=== PATIENT | female | born 2005 | race Caucasian/White ===

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

== ENCOUNTER 2023-10-01 03:17 | Emergency (ER) | payer OTHER, SELFPAY ==
[2023-10-01 03:19] VITALS: BP 160/101; PULSE 97; RESP 18; TEMP 36.8; O2SAT 100; BMI 38.2
[2023-10-01 03:53] LABS: Add Urine Microscopic? YES; Bilirubin Urine Neg (Negative); Blood Urine 2+ (Negative); Glucose Urine UA Norm (Normal); HCG Qualitative Urine. Negative (Negative); Ketones Urine Negative (Negative); Leukocyte Esterase Urine 2+ (Negative); Nitrate Urine Negative (Negative); Protein Urine Neg (Negative); Sulfosalicylic Acid Urine Negative (Negative); Urine Appearance Cloudy (CLEAR); Urine Color Yellow (Yellow); Urobilinogen Urine Neg (Negative); pH Urine 8 (5-7)
[2023-10-01 03:54] LABS: WBC Urine 15-25 /hpf (0-5)
[2023-10-01 03:55] LABS: Add Urine Culture? No; Amorphous Sediment Urine 1+ /hpf; Bacteria Urine 2+ /hpf; Mucus Urine 2+ /hpf; Squamous Epithelial Cell Urine 25-40 /hpf (0-5)
[2023-10-01 04:02] LABS: Basophils # 0.1 10^3/uL (0.0-0.1); Basophils % 0.4 %; Hematocrit 39.6 % (36-47); Lymphocytes # 2.1 10^3/uL (1.5-6.5); Lymphocytes % 11.5 %; Mean Corpuscular HGB Conc 32.3 g/dL (30-55); Mean Corpuscular Hemoglobin 28.6 pg (27-33); Mean Corpuscular Volume 88.6 fl (85-98); Mean Platelet Volume 8.5 fL (7.4-10.4); Monocytes # 0.6 10^3/uL (0.2-0.9); Neutrophils # 15.81 10^3/uL (1.8-8.0); Neutrophils % 84.9 %; Nucleated Red Blood Cells % 0 %; Platelet Count 445 10^3/cmm (157-399); Red Blood Count 4.47 10^6/uL (3.85-5.65); Red Cell Distribution Width 12.3 % (12.1-15.1); White Blood Count 18.59 10^3/uL (4.5-13.0)
--- NOTE | 2023-10-01 04:10 | CTR_ITS ---
PROCEDURE INFORMATION: Exam: CT Abdomen And Pelvis With Contrast Exam date and time: 10/01/2023 4:29 AM Age: 18 years old Clinical indication: Abdominal pain; Flank; Left; Additional info: Llq abd pain TECHNIQUE: Imaging protocol: Computed tomography of the abdomen and pelvis with contrast. Radiation optimization: All CT scans at this facility use at least one of these dose optimization techniques: automated exposure control; mA and/or kV adjustment per patient size (includes targeted exams where dose is matched to clinical indication); or iterative reconstruction. Contrast material: OMNI 350; Contrast volume: 100 ml; Contrast route: INTRAVENOUS (IV); COMPARISON: No relevant prior studies available. RADIATION DOSE METRICS: Total DLP (mGy-cm): 1131 FINDINGS: Lungs: Lung bases are clear as visualized. Heart: Base of heart is unremarkable as visualized. Liver: Normal. No mass. Gallbladder and bile ducts: Normal. No calcified stones. No ductal dilation. Pancreas: Normal. No ductal dilation. Spleen: Normal. No splenomegaly. Adrenal glands: Normal. No mass. Kidneys and ureters: Delayed left nephrogram. Just beyond the left ureteropelvic junction there are 2 calcified renal stones each measuring about 6 mm in greatest cross-sectional dimension. There is left xpea-cx-tqbfhwas hydronephrosis and left renal pelvic dilation. Remainder of the left ureter is unremarkable. Stomach and bowel: Moderate colonic stool burden. Appendix: No evidence of appendicitis. Intraperitoneal space: Unremarkable. No free air. No significant fluid collection. Vasculature: Unremarkable. No abdominal aortic aneurysm. Lymph nodes: Oval right inferior axillary mass, likely posterior mammary lymph node. Urinary bladder: Unremarkable as visualized. Reproductive: Unremarkable as visualized. Bones/joints: Mild endplate irregularities of the lower thoracic spine. Soft tissues: See Lymph nodes finding. CT/CT abdomen pelvis w con* [id number] IMPRESSION: 1. Two obstructing left renal stones are present within the proximal 3rd of the left ureter just beyond the left ureteropelvic junction. There is irzf-gc-wlxiikkz upstream obstruction/hydronephrosis. 2. Oval right inferior axillary mass, likely posterior inferior mammary lymph node. Correlate with physical examination. Breast imaging consultation can be obtained if clinically warranted.
--- NOTE | 2023-10-01 04:11 | ED_ITS ---
HPI - Abdominal Pain 2 General: Chief Complaint: Abdominal Pain Stated Complaint: lower left back and abd sharp contstant pain Time Seen by Provider: 10/01/23 03:30 History of Present Illness: 18-year-old female presents emerged part with complaints of left flank pain rating around to her lower left abdomen and groin area. She states is a sudden onset of pain that is a sharp stabbing pain that is a 10 out of 10. She states she is unable to find a comfortable position. She states that she also had a single episode of nausea with 2 episodes of vomiting when the pain started. She states she has noticed increased urinary frequency and intermittent dysuria as well. Associated Symptoms: Reports dysuria Related Data: Date of Last Menstrual Period: 09/25/23 Review of Systems 2 General: Reports: 10 or more systems reviewed and unremarkable except in HPI and below : Reports: flank pain, dysuria and urinary frequency [facility] ED 2 PFSH: Medical History (Updated 10/01/23 @ 06:12 by Terrance Chung MD) Major depressive disorder, recurrent, moderate History of separation anxiety Social anxiety disorder Other intermission coordinator (current) drug therapy Psychiatric care Female Reproductive History: Date of last menstrual period: 09/25/23 Physical Exam 2 Narrative: EXAM NARRATIVE: Constitutional: the patient appears well nourished and of normal development. Vital signs as documented. No acute distress at present. Alert and oriented-to person, place, time and situation. Head, eyes, ears, nose, mouth, throat: Normocephalic, atraumatic. Pupils-equal, round, reactive to light. No scleral icterus. Normal-appearing external ears. Normal appearing nasal turbinates, no drainage. No obvious oral lesions, posterior oropharynx without erythema or exudates. Neck: Supple, trachea is midline, no lymphadenopathy, no jugular venous distension, thyromegaly, or carotid bruits. Carotid upstrokes are brisk bilaterally. Lungs: clear to auscultation to all lung borges. Symmetrical rise and fall of chest, no obvious signs of increased work of breathing at present. Cardiac: Regular rate and rhythm, positive S1, S2. No murmurs, rubs or gallops that I can appreciate Abdomen: Soft, non-tender to palpation, normal active bowel sounds to all quadrants. No palpable masses, no organomegaly and abdominal bruits. Extremities: 2+ pulses in the upper extremities that are equal bilaterally, 2+ pulses in the lower extremities that are equal bilaterally. Non-edematous. Moves all extremities well, sensation to all extremities are noted. Skin: Warm, dry, intact. Back: Positive left CVA tenderness. Normal alignment, no obvious deformity Course 2 Vital Signs: Vital signs: Vital Signs Temperature 98.2 F 10/01/23 03:19 Pulse Rate 101 H 10/01/23 05:42 Respiratory Rate 18 10/01/23 03:19 Blood Pressure 105/78 10/01/23 05:42 Pulse Oximetry 95 10/01/23 05:42 Oxygen Delivery Me thod Room Air 10/01/23 03:19 MDM - Abdominal Pain Medical Decision Making Physical exam completed and documented I will provide the patient IV antibiotics as well as obtain a CBC and CMP and a CT scan and urinalysis. I have after reviewing the urinalysis and CT scan results I will provide the patient antinausea medicine, Toradol for pain relief and Rocephin. Medical Records I reviewed the patient's medical records. Lab Data I reviewed the patient's lab results. 10/01/23 03:59 10/01/23 03:59 Labs/Radiology: Radiology Impressions Abdomen/Pelvis CT 10/01/23 04:10 IMPRESSION: 1. Two obstructing left renal stones are present within the proximal 3rd of the left ureter just beyond the left ureteropelvic junction. There is bgqm-wd-zboxvvod upstream obstruction/hydronephrosis. 2. Oval right inferior axillary mass, likely posterior inferior mammary lymph node. Correlate with physical examination. Breast imaging consultation can be obtained if clinically warranted. Laboratory Results WBC 18.59 10^3/uL (4.5-13.0) H 10/01/23 03:59 RBC 4.47 10^6/uL (3.85-5.65) 10/01/23 03:59 Hgb 12.80 g/dL (12.4-14.8) 10/01/23 03:59 Hct 39.6 % (36-47) 10/01/23 03:59 MCV 88.6 fl (85-98) 10/01/23 03:59 MCH 28.6 pg (27-33) 10/01/23 03:59 MCHC 32.3 g/dL (30-55) 10/01/23 03:59 RDW 12.3 % (12.1-15.1) 10/01/23 03:59 Plt Count 445 10^3/cmm (157-399) H 10/01/23 03:59 MPV 8.5 fL (7.4-10.4) 10/01/23 03:59 Neut % (Auto) 84.9 % 10/01/23 03:59 Lymph % (Auto) 11.5 % 10/01/23 03:59 Rooks % (Auto) 3.0 % 10/01/23 03:59 Eos % (Auto) 0.0 % 10/01/23 03:59 Baso % (Auto) 0.4 % 10/01/23 03:59 Neut # (Auto) 15.81 10^3/uL (1.8-8.0) H 10/01/23 03:59 Lymph # (Auto) 2.1 10^3/uL (1.5-6.5) 10/01/23 03:59 Rooks # (Auto) 0.6 10^3/uL (0.2-0.9) 10/01/23 03:59 Eos # (Auto) 0.0 10^3/uL (0.0-0.8) 10/01/23 03:59 Baso # (Auto) 0.1 10^3/uL (0.0-0.1) 10/01/23 03:59 Nucleated RBC % (auto) 0 % 10/01/23 03:59 Nucleated RBCs # 0.0 /100WBC 10/01/23 03:59 Sodium 135 mmol/L (136-145) L 10/01/23 03:59 Potassium 4.2 mmol/L (3.5-5.1) 10/01/23 03:59 Chloride 99 mmol/L (98-107) 10/01/23 03:59 Carbon Dioxide 22 mmol/L (22-29) 10/01/23 03:59 Anion Gap 18.2 (5-19) 10/01/23 03:59 BUN 14 mg/dL (6-20) 10/01/23 03:59 Creatinine 0.8 mg/dL (0.5-0.9) 10/01/23 03:59 GFR Calculation 91.4 mL/min (90-130) 10/01/23 03:59 Glucose 104 mg/dL (65-115) 10/01/23 03:59 Calculated Osmolality 281 mOsm/kg (285-295) L 10/01/23 03:59 Calcium 9.7 mg/dL (8.5-10.5) 10/01/23 03:59 Total Bilirubin 0.3 mg/dL (0.15-1.2) 10/01/23 03:59 AST 10 U/L (0-32) 10/01/23 03:59 ALT < 5 U/L (0-33) 10/01/23 03:59 Alkaline Phosphatase 93 U/L (35-105) 10/01/23 03:59 Total Protein 7.2 g/dL (6.6-8.7) 10/01/23 03:59 Albumin 3.7 g/dL (3.5-5.2) 10/01/23 03:59 Globulin 3.5 g/dL (1.3-4.6) 10/01/23 03:59 HCG, Qual Negative (Negative) 10/01/23 03:40 Urine Color Yellow (Yellow) 10/01/23 03:40 Urine Appearance Cloudy (CLEAR) A 10/01/23 03:40 Urine pH 8 (5-7) H 10/01/23 03:40 Ur Specific [place] 1.020 (1.005-1.030) 10/01/23 03:40 Urine Protein Neg (Negative) 10/01/23 03:40 Urine Glucose (UA) Norm (Normal) 10/01/23 03:40 Urine Ketones Negative (Negative) 10/01/23 03:40 Urine Blood 2+ (Negative) H 10/01/23 03:40 Urine Nitrate Negative (Negative) 10/01/23 03:40 Urine Bilirubin Neg (Negative) 10/01/23 03:40 Prot Sulfosalicylic Acd Negative (Negative) 10/01/23 03:40 Urine Urobilinogen Neg mg/dL (Negative) 10/01/23 03:40 Ur Leukocyte Esterase 2+ (Negative) H 10/01/23 03:40 Urine RBC 5-10 /hpf (0-2) H 10/01/23 03:40 Urine WBC 15-25 /hpf (0-5) H 10/01/23 03:40 Ur Squamous Epith Cells 25-40 /hpf (0-5) H 10/01/23 03:40 Amorphous Sediment 1+ /hpf 10/01/23 03:40 Urine Bacteria 2+ /hpf (NONE) H 10/01/23 03:40 Urine Mucus 2+ /hpf 10/01/23 03:40 All radiology interpretation(s) finalized by discharge Discharge Plan Discharge Patient Disposition: Home Clinical Impression: Multiple renal calculi, Acute left flank pain, UTI (urinary tract infection) Condition: Stable Prescriptions: New hydrocodone-acetaminophen 5-325 mg tablet 1 tab PO Q8H PRN (Reason: pain) Qty: 14 0RF nitrofurantoin monohyd/m-cryst [Macrobid] 100 mg capsule 100 mg PO Q12H 7 Days Qty: 14 0RF Rx Instructions: must administer with a meal/food ondansetron HCl 4 mg tablet 4 mg PO Q12H 5 Days Qty: 10 0RF tamsulosin [Flomax] 0.4 mg capsule 0.4 mg PO DAILY Qty: 30 0RF No Action topiramate 200 mg tablet 200 mg PO BID magnesium 200 mg tablet 200 mg PO BID cholecalciferol (vitamin D3) 50 mcg (2,000 unit) capsule 50 mcg PO DAILY norgestrel-ethinyl estradiol 0.5-50 mg-mcg tablet PO DAILY hydroxyzine pamoate 25 mg capsule See Rx Instructions PO .q hs PRN (Reason: anxiety/insomnia) Qty: 60 1RF Rx Instructions: Take 1 or 2 capsules daily at bedtime, if needed for anxiety/insomnia venlafaxine 150 mg capsule,extended release 24hr See Rx Instructions PO QAM Qty: 60 1RF Rx Instructions: Take two capsules by mouth every morning Discharge Orders: Discharge ED (Routine); Ordered 10/01/23 Ordered By: Terrance Chung Referrals: Huyen Malcolm, BRIDGE PAINTER HELPER [Primary Care Provider] - Discharge Diet: Usual diet Discharge Activity: Resume usual activity Patient Instructions: Opioid Safety, Pain Management Activity Restrictions/Additional Instructions: Activity Restrictions/Additional Instructions: Thank you for choosing [facility] for your healthcare needs today. Please realize that you were seen in the Emergency Department and that we are providing you with an emergency medical screening exam and this may not be a complete and all inclusive of all the testing and or medical work-up that you may need to determine your ailment or severity of your illness. It is very important that you follow-up as instructed with your Primary care provider or Specialist for additional evaluation and to discuss your medical treatment plan. You may return to the Emergency Department should you have concerns or if your condition changes or worsens in any way. Call to make a Follow-up appointment: [facility] [address] [place] [address] [facility] [address] [place] [address] Dr.ive Zambrano [place], [place] [address] Phone--[phone] Coding Level of Care Code ED Lapel Stitcher for Damian Griggs
[2023-10-01] MEDS: ondansetron 2 mg/ML SDV 2 mL 4 MG IVP (04:17)
[2023-10-01] MEDS: cefTRIAXone 1,000 MG in sodium chloride 0.9% (plus) 50 ML 100 MG IV (04:17)
[2023-10-01] MEDS: ketorolac 30 mg/mL INJ IVP (04:17)
[2023-10-01 04:27] LABS: Alanine Aminotransferase < 5 U/L (0-33); Albumin Level 3.7 g/dL (3.5-5.2); Alkaline Phosphatase 93 U/L (35-105); Anion Gap 18.2 (5-19); Aspartate Amino Transferase 10 U/L (0-32); Blood Urea Nitrogen 14 mg/dL (6-20); Calcium 9.7 mg/dL (8.5-10.5); Carbon Dioxide 22 mmol/L (22-29); Chloride 99 mmol/L (98-107); Creatinine Clr Calc Pharmacy 134.4601; Globulin 3.5 g/dL (1.3-4.6); Glomerular Filtration Rate 91.4 mL/min (90-130); Glucose 104 mg/dL (65-115); Osmolality Calculated 281 mOsm/kg (285-295); Potassium 4.2 mmol/L (3.5-5.1); Sodium 135 mmol/L (136-145); Total Bilirubin 0.3 mg/dL (0.15-1.2); Total Protein 7.2 g/dL (6.6-8.7)
[2023-10-01] MEDS: iohexol 350 mg/mL 500 mL Btl (per mL) IV (04:32)
[2023-10-01 05:42] VITALS: BP 105/78; PULSE 101; O2SAT 95
[2023-10-01 06:26] VITALS: BP 140/75; PULSE 111; O2SAT 99
== END 2023-10-01 06:29 | disposition home or self-care (01) ==
PROVIDERS: Emergency Provider Internal Medicine; PCP Nurse Practitioner Family
DX: N13.2 Hydronephrosis with renal and ureteral calculous obstruction (principal); N39.0 Urinary tract infection, site not specified
CPT/HCPCS: 74177; 80053; 81001; 81025; 85025; 96365; 96375; 99285; J0696; J1885; J2405; Q9967

== ENCOUNTER 2023-11-04 12:44 | Outpatient (CLI) | payer OTHER, SELFPAY ==
--- NOTE | 2023-11-04 12:54 | US_ITS ---
WS: [id number] ULTRASOUND BREAST RIGHT TECHNIQUE: Ultrasound right breast focused area of concern. CLINICAL INFORMATION: AXILLARY MASS/BREAST LUMP OR MASS R BREAST COMPARISON: CT 10/01/2023 FINDINGS: 2 lymph nodes visualized in the RIGHT axilla the largest measuring 12 mm in maximum dimension with no rmal preserved fatty hilum. This has a benign appearance. Smaller lymph node measuring 10 mm. This al so has a benign appearance. Ultrasound RIGHT breast in the area of concern about the areola. Normal underlying parenchymal tissue . No cystic or solid lesions. No suspicious lesions to target for biopsy. Findings are benign. IMPRESSION: BI-RADS 2 benign Recommend annual screening mammography age 40
== END 2023-11-04 12:45 | disposition home or self-care (01) ==
LOC: RAD 12:45
PROVIDERS: PCP Nurse Practitioner Family; Visit Provider Nurse Practitioner Family
DX: Z12.31 Encounter for screening mammogram for malignant neoplasm of breast (principal)
CPT/HCPCS: 76642

== ENCOUNTER 2024-02-12 03:56 | Emergency (ER) | payer OTHER, SELFPAY ==
[2024-02-12 03:59] VITALS: BP 155/94; PULSE 100; RESP 16; TEMP 37.2; O2SAT 100; BMI 44.9
--- NOTE | 2024-02-12 04:14 | XRR_ITS ---
PROCEDURE INFORMATION: Exam: XR Abdomen Exam date and time: 02/12/2024 4:30 AM Age: 19 years old Clinical indication: Constipation; Additional info: Constipation abd pain TECHNIQUE: Imaging protocol: Radiologic exam of the abdomen. Views: Frontal supine view of the abdomen. 1 View. COMPARISON: CT abdomen pelvis w con* [id number] 10/01/2023 4:29 AM FINDINGS: Gastrointestinal tract: There is moderate amount of stool throughout the colon and rectum, suggestive of constipation. Nonobstructive bowel gas pattern. Bones/joints: Unremarkable. XR/XR abdomen 1V* [id number] IMPRESSION: Imaging findings suggestive of constipation.
--- NOTE | 2024-02-12 04:17 | W.ED.ABDPA2 ---
HPI - Abdominal Pain General: Chief Complaint: Abdominal Pain Stated Complaint: Constipation Time Seen by Provider: 02/12/24 03:59 History of Present Illness: Patient presents to the ER after complaining of having constipation for the last week and a half. She had a big bowel movement a week and a half ago and has only had small bowel movements and then since then. She tried Dulcolax for 3 days, she took 1 week of eazt-klg-hfruxld MiraLAX and then she took 1 enema last night. Patient denies taking pain medicine regularly or having any abdominal surgeries. Patient is still passing gas and still having small bowel movements however she think she is backed up with stool. Related Data: Date of Last Menstrual Period: 01/23/24 Review of Systems General: Reports: 10 or more systems reviewed and unremarkable except in HPI and below PFSH ED PFSH: Medical History Major depressive disorder, recurrent, moderate History of separation anxiety Social anxiety disorder Other terminal clerk (current) drug therapy Psychiatric care Female Reproductive History: Date of last menstrual period: 01/23/24 Physical Exam Const: COMMON NORMALS: no acute distress, average body habitus, patient oriented x3, no limitations, healthy appearing, alert and well nourished HENMT: COMMON NORMALS: normocephalic, atraumatic, hearing grossly normal bilaterally, external ears normal, Normal external nose present and moist oral mucous membranes HEAD & SCALP: normocephalic and atraumatic NOSE: Normal external nose present EXTERNAL EAR: Yes external ears normal Neck/C-Spine: COMMON NORMALS: no JVD Chest: COMMONS NORMALS: normal inspection of the chest and normal palpation of entire chest wall Resp: COMMON NORMALS: normal respiratory effort, No retractions, No use of accessory muscles and clear to auscultation bilaterally AUSCULTATION: clear to auscultation bilaterally Cardio: COMMON NORMALS: no JVD, regular rate, regular rhythm, S1 normal heart sound present, S2 normal heart sound present, No gallops present (Cardio), No clicks present (Cardio) and No murmurs present (Cardio) RATE: regular rate RHYTHM: regular rhythm HEART SOUNDS: S1 normal heart sound present and S2 normal heart sound present GI: COMMON NORMALS: Normal to inspection, nondistended, normoactive bowel sounds present, Soft to palpation, No hepatosplenomegaly present and no masses; negative for non-tender (Diffusely tender throughout) PALPATION: Yes Soft to palpation and Yes No hepatosplenomegaly present : OTHER: External rectal exam showed hemorrhoid is irritated and probably the source of the bleeding. Neuro: COMMON NORMALS: patient oriented x3 SENSORIUM/ORIENTATION: Yes alert Course Vital Signs: Vital signs: Vital Signs Temperature 98.9 F 02/12/24 03:59 Pulse Rate 94 02/12/24 05:10 Respiratory Rate 18 02/12/24 05:10 Blood Pressure 139/81 02/12/24 05:10 Pulse Oximetry 98 02/12/24 05:10 Oxygen Delivery Me thod Room Air 02/12/24 03:59 MDM - Abdominal Pain Medical Decision Making X-ray of the abdomen showed suggestive findings of constipation external rectal exam showed hemorrhoid that was probably the source of the bleeding. Patient will be instructed to increase her MiraLAX dose to 4 tablespoons or capsules a day for 3 days until she has multiple good bowel movements and then slowly wean him down over the course of several days. Differential Diagnosis Likely abdominal pain and constipation Medical Records I reviewed the patient's medical records. Lab Data I reviewed the patient's lab results. Labs/Radiology: Radiology Impressions Abdomen X-Ray 02/12/24 04:14 IMPRESSION: Imaging findings suggestive of constipation. All radiology interpretation(s) finalized by discharge Discharge Plan Discharge Patient Disposition: Home Clinical Impression: External hemorrhoid, bleeding Constipation Qualifiers: Constipation type: unspecified constipation type Qualified Code(s): K59.00 - Constipation, unspecified Condition: Stable Prescriptions: No Action magnesium 200 mg tablet 200 mg PO BID Qulipta 30 mg tablet 30 mg PO DAILY venlafaxine 150 mg capsule,extended release 24hr See Rx Instructions PO QAM Qty: 60 1RF Rx Instructions: Take two capsules by mouth every morning Discharge Orders: Discharge ED (Routine); Ordered 02/12/24 Ordered By: Wellington Wells Referrals: Huyen Malcolm FNP [Primary Care Provider] - 1 week Patient Instructions: Constipation (ED), Hemorrhoids (ED) Activity Restrictions/Additional Instructions: Your physical exam showed you have a irritated external hemorrhoid which may be the source of your bleeding. Please get some mjrw-lja-kvexnyy Preparation H and use as directed. Your x-ray showed you are still mildly constipated. Please increase your MiraLAX dose to 4 capfuls/tablespoons daily for the next 3 days and then slowly wean yourself down to 1 capful a day until using nothing. This way you do not have rebound constipation. Please follow-up with your family practice doctor within next 7 to 10 days for further evaluation and treatment as needed. Coding Level of Care Code ED Inside Sales Account Representative for Damian Griggs
[2024-02-12 05:10] VITALS: BP 139/81; PULSE 94; RESP 18; O2SAT 98
[2024-02-12 06:37] VITALS: BP 138/64; PULSE 89; RESP 16; O2SAT 98
== END 2024-02-12 06:15 | disposition home or self-care (01) ==
PROVIDERS: Emergency Provider Emergency Medicine; PCP Nurse Practitioner Family
DX: K59.00 Constipation, unspecified (principal); K64.4 Residual hemorrhoidal skin tags
CPT/HCPCS: 74018; 99283